=== PATIENT | female | born 1980 | race Caucasian/White ===

== ENCOUNTER → 2017-01-01 | Outpatient (CLI) | payer OTHER ==
--- NOTE | 2017-01-01 10:00 | KCIC ---
Ultrasound Ob Indication: Size and date discrepancy. There is a single live fetus in a cephalic presentation. The placenta is anterior. Amniotic fluid volume is normal. heart rate was recorded at 136 beats per minute. No gross abnormalities are seen. Biometric measurements are as follows: BPD 8.1 centimeters 32 weeks 4 days Head circumference 31.1 centimeters 34 weeks 6 days Abdominal circumference 29.4 centimeters 33 weeks 3 days Femur length 6.8 centimeters 35 weeks 1 day Estimated weight 2314 grams Gestational age 34 weeks 0 days Impression: Single live IUP approximately 34 weeks 0 days gestational age. Estimated date of confinement sonographically is 02/12/2017. Electronically signed by: Kb Navarrete MD (Jan 01, 2017 09:58:55)
== END | disposition home or self-care (01) ==
LOC: KCIC US 07:57
PROVIDERS: ATTEND Family Medicine
DX: O26.843 Uterine size-date discrepancy, third trimester (principal); Z3A.34 34 weeks gestation of pregnancy
CPT/HCPCS: 76805